=== PATIENT | male | born 1990 | race Caucasian/White ===

== ENCOUNTER → 2024-08-13 07:53 | Outpatient (REF) | payer OTHER, SELFPAY | LOC: EMG 07:53 | PROVIDERS: ATTENDING PHYSICIAN Physician Assistant Medical; FAMILY PHYSICIAN Family Medicine | DX: R20.2 Paresthesia of skin (principal); R20.0 Anesthesia of skin | CPT/HCPCS: 95886; 95911 ==

== ENCOUNTER 2024-08-25 18:10 | Inpatient (IN) | payer OTHER, SELFPAY ==
[2024-08-25] VITALS (7 sets, daily range): BP systolic 127–154; BP diastolic 88–96; BMI 25.9; BMI 25.2
--- NOTE | 2024-08-25 15:10 | ED.GENMED ---
History of Present Illness
General
Chief Complaint: Breathing Problem
Time Seen by Provider: 08/25/24 15:01
History of Present Illness
History of Present Illness:
Patient is a 34-year-old man presenting to the emergency department for respiratory distress. Patient states that for the past week he has had fevers chills cough congestion runny nose. He has had decreased p.o. secondary to it. Medics were
called today. On their arrival patient was 86% on room air placed on nasal cannula. He was tachycardic in the 140s. Blood sugar was normal. He does state this is similar to when he had COVID. He states that he has had pneumonia and required
chest tubes in the past before. Per chart review patient did have a prolonged admission for COVID in May 2022.
Past History
Past History
ED Past Medical History: Other (PNA, Thoracentesis, COVID Sleep disorder)
ED Past Surgical History: Tonsilectomy; Negative Cardiac
Social History
Tobacco: Smoker
Alcohol: None
Drug: Other (Substance abuse)
Personal: Single
Living: with family
Employment: Other
Family History
Family History: CAD
Phy Exam
Physical Exam
Physical Exam:
GENERAL: in no acute distress
HEENT: normocephalic, extraocular movements intact, dry oral mucosa
NECK: normal inspection
RESPIRATORY: Tachypneic, diminished breath sounds at bases, clear breath sound in the apical lung marte
CARDIOVASCULAR: Tachycardic rate regular rhythm
ABDOMEN/: soft, non-distended, non-tender to palpation, no rebound or guarding
EXTREMITIES: non-tender, no edema/swelling
NEUROLOGIC: awake and alert, moves all extremities
SKIN: warm
Sepsis
Sepsis Screening
Sepsis Assessment: Sepsis Ruled Out
Sepsis Screen
Sepsis Screen: Sepsis Ruled Out
Date: 08/25/24
Time: 16:50
Course
Orders/Labs/Results
Orders:
Orders
08/25/24 15:07
EKG [Electrocardiogram (*1)] Urgent
Reason for Study: Shortness of Breath
EKG- Treatment ONCE
CR Chest Portable - 1 View Urgent
Comment:
Reason For Exam: SOB
Reason Study Needs to be Portable: Patient Unstable
08/25/24 15:16
Basic Metabolic Panel Urgent
COVID-19 Antigen Urgent
Source: Nasal Swab
Complete Blood Count/No Diff Urgent
Influenza A+B Rapid Molecular Urgent
[place] Source: Nasal Swab
Specimen Description:
0.9% Sodium Chloride 1000 ml [Nss] 1,000 ml IV BOLUS
08/25/24 16:39
Doxycycline [Vibramycin] 100 mg PO NOW STA
08/25/24 16:48
CefTRIAXone [Rocephin] 1,000 mg IV NOW STA
Abnormal Lab Results
08/25/24
15:16
WBC 12.5 H 10^3/uL
(4.8-10.8)
MCH 31.2 H pg
(27.0-31.0)
MPV 11.1 H fL
(7.4-10.4)
Chloride 95 L mmol/L
(98-107)
Glucose 133 H mg/dl
(70-99)
08/25/24 15:16
08/25/24 15:16
Vital Signs
Initial and Last Documented VS:
Initial Vital Signs
Temp Pulse Resp BP Pulse Ox
97.9 F 132 22 127/95 88
08/25/24 15:08 08/25/24 15:08 08/25/24 15:08 08/25/24 15:08 08/25/24 15:08
Last Documented Vital Signs
Temp Pulse Resp BP Pulse Ox
97.9 F 139 19 127/95 93
08/25/24 15:08 08/25/24 16:30 08/25/24 16:30 08/25/24 15:08 08/25/24 16:30
MDM/Problems Addressed
Differential Diagnosis Includes:
Patient is a 34-year-old man presenting to the emergency department for over 1 week of fevers chills cough congestion runny nose. On arrival here patient is hypoxic to 89% on room air as well as tachycardic. On exam he does have diminished breath
sounds at the bases. Given the consolation of systems likely pneumonia versus viral infection. Considered PE though less likely given history and exam. Will obtain blood work EKG chest x-ray and give fluids.
*Critical Care Note
Total Time (30-74mins, 75-104mins- exclusive of procedures): Not Applicable
Update Note
Update Note:
EKG per my interpretation with prolonged QTc. Chest x-ray per my interpretation consistent with pneumonia. Will treat with ceftriaxone and doxycycline. I did discuss allergies with patient's mother. Patient's mother does state that he is
tolerated Augmentin in the past. I did consider giving alternative agent however given his prolonged QTc cannot give Levaquin. After shared decision making we will give ceftriaxone. Blood work otherwise reassuring. COVID flu negative. Discussed
with hospitalist who accepted patient to their service
ED Attending Note
-
Portions of this chart may have been created with voice recognition software.� Occasional wrong word or��sound alike� substitutions may have occurred due to the inherent limitations of voice recognition software.
Discharge Plan
Departure
Patient Disposition: Admit
Date of Disposition: 08/25/24
Time of Disposition: 16:39
Presentation/result/management discussed w/ accepting MD/DO: Hospitalist
Discharge Problem:
Pneumonia
Prescriptions:
No Action
buprenorphine-naloxone 8-2 mg Tablet, Sublingual
0.5 tab SUBLINGUAL 1500,2000
buprenorphine-naloxone 8-2 mg Tablet, Sublingual
1 tab SUBLINGUAL 2300
quetiapine 50 mg Tablet
50 mg PO HS
levofloxacin 500 mg tablet
500 mg PO DAILY 9 Days Qty: 9 0RF
metronidazole 500 mg tablet
500 mg PO TID Qty: 29 0RF
doxycycline hyclate 100 mg capsule
100 mg PO BID Qty: 14 0RF
Interventions
Interventions:
*Risk Screen - Suicide Last Done: 08/25/24 15:08
*General Assessment Last Done: 08/25/24 15:08
*Neglect/Abuse Screening Last Done: 08/25/24 15:08
*ED COVID-19 Vaccine History Last Done: 08/25/24 15:20
Discharge Date and Time
Print Language: SWISS
[2024-08-25 15:32] LABS: Hematocrit 48.2 % (39.0-52.0); Hemoglobin 16.7 g/dL (13.0-18.0); Mean Corp Hgb Conc. 34.6 g/dL (33.0-37.0); Mean Corpuscular Hgb 31.2 pg (27.0-31.0); Mean Corpuscular Volume 90.1 fL (80.0-94.0); Mean Platelet Volume 11.1 fL (7.4-10.4); Platelet Count 312 10^3/uL (130-400); Red Blood Cell Count 5.35 10^6/uL (4.70-6.10); Red Cell Dist. Width 12.3 % (11.5-14.5); White Blood Cell Count 12.5 10^3/uL (4.8-10.8)
[2024-08-25 15:46] LABS: Blood Urea Nitrogen 10 mg/dl (9-20); Calcium 9.6 mg/dl (8.4-10.2); Carbon Dioxide 22 mmol/L (22-30); Chloride 95 mmol/L (98-107); Estimated Creatinine Clearance > 125 ml/min; Glucose 133 mg/dl (70-99); Sodium 136 mmol/L (135-145); eGFR > 60.00
[2024-08-25 15:48] LABS: COVID-19 Antigen Negative (Negative)
--- NOTE | 2024-08-25 17:21 | HPS.HSE ---
Family Physician
-
Family Physician: Obdulio Rushing
Chief Complaint
-
Shortness of breath
History of Present Illness
34-year-old male with extensive past medical history of smoking cigarettes and vaping was presenting from home with shortness of breath. Per mom at bedside patient picked up upper respiratory congestion and cough during [place] time. Patient is
a for the past 9 days he has been having sore throat with productive cough. States the sputum is yellow in color intermittently. States of sore throat. Also stating of shortness of breath. Also with significantly poor appetite. Not drinking
enough water per mother at bedside. No chest pain. Denies any headache. Denies any nausea or vomiting. Had fevers at home. Currently states he is thirsty and wants to drink some water..
ER course -normal saline x 1 L, ceftriaxone and Doxy ordered, yet to be administered
Medical History
Past Medical History
Past Medical History: Reports Other
Additional Past Medical History:
Tobacco abuse
Vaping 5 mg daily
History of pleural effusion status post thoracentesis
History of COVID-19 infection
History of opioid abuse
Polyneuropathy
Primary insomnia
Hyperlipidemia
Chronic insomnia
Past Surgical History: Reports Tonsilectomy
Social History
Tobacco: Vaping
Alcohol: None
Drug: None
Family History
Family History: Not pertinent
Allergies / Home Medications
Allergies reflects when Allergies were last updated in [facility].
Home Medications with original date entered in [facility]
Allergy/Medication List:
Allergies
Allergy/AdvReac Type Severity Reaction Status Date / Time
amoxicillin trihydrate Allergy stomach Verified 08/25/24 15:15
[From Augmentin] upset and
diarrhea
azithromycin Allergy stomach Verified 08/25/24 15:15
[From Zithromax Z-[place]] upset and
diarrhea
peanut Allergy throat Verified 08/25/24 15:15
swells,
shortness
of breath,
rash
Penicillins Allergy Nausea / Verified 08/25/24 15:15
Vomiting
sesame oil Allergy Unknown Verified 08/25/24 15:15
sunflower oil Allergy throat Verified 08/25/24 15:15
swells,
shortness
of breath,
rash
Home Medications
buprenorphine 8 mg-naloxone 2 mg sublingual tablet 0.5 tab sublingual QID 10/05/22
quetiapine 50 mg tablet 50 mg PO DAILY 10/05/22
atorvastatin 10 mg tablet 10 mg PO DAILY 08/25/24
cholecalciferol (vitamin D3) 1,250 mcg (50,000 unit) capsule 1,250 mcg PO SA 08/25/24
Review of Systems
-
History Source: Patient and Family
Constitutional: Reports Fever and Fatigue
EENT: Reports Sore Throat
Respiratory: Reports Cough
Cardiac: Reports No Symptoms
Abdomen/GI: Reports Anorexia
: Reports No Symptoms
Musculoskeletal: Reports No Symptoms
Skin: Reports No Symptoms
Neurological: Reports No Symptoms
Endocrine: Reports No Symptoms
Hematologic/Lymphatic: Reports No Symptoms
Psych: Reports No Symptoms
Physical Exam
Vital Signs
Vital Signs
Temp Pulse Resp BP Pulse Ox
97.9 F 130 22 127/95 95
08/25/24 15:08 08/25/24 17:15 08/25/24 17:15 08/25/24 15:08 08/25/24 17:15
Physical Exam
General: Well Developed, Well Nourished, No Apparent Distress and Other (Warm to touch)
HEENT: NormoCephalic, Moist mucous membranes and Atraumatic
Respiratory: Clear and Decreased Breath Sounds
Cardiac: S1/S2, Regular Rhythm and Tachycardia; No Murmur or Rub
GI: Soft, Non Tender, Non Distended and Normal Bowel Sounds; No Organomegaly
Rectal: Deferred by Provider
Musculoskeletal: No Clubbing, No Cyanosis and No Edema
Skin: No Rash
Neuro: Awake, AO x 3, No Motor Deficits and Nonfocal/grossly intact
Psych: Calm
Laboratory Results
-
08/25/24 15:16
08/25/24 15:16
Laboratory Results
Total Bilirubin Cancelled 08/25/24 15:16
AST Cancelled 08/25/24 15:16
ALT Cancelled 08/25/24 15:16
Alkaline Phosphatase Cancelled 08/25/24 15:16
Impression/Plan
-
#Sepsis likely secondary to suspected pneumonia-poa
#Acute hypoxic respiratory insufficiency
Influenza & COVID-negative
Start patient on aggressive IV fluid resuscitation
Check a lactic acid
Check blood cultures
Start patient on ceftriaxone and doxycycline
Start patient on bronchodilators
Check CT chest study to rule out pulmonary embolism, pleural effusion, lung injury etc
Check strep pneumo and Legionella antigen
Check sputum culture
#Sinus tachycardia is multifactorial likely secondary sepsis, pneumonia, hypoxemia, nicotine withdrawal
Treat underlying symptomatology
Continue with IV fluid resuscitation and antibiotics
#Prolonged QTc secondary to likely sinus tachycardia
Recheck EKG in the morning
Monitor on telemetry
#Hyperlipidemia
Continue statin
#History of opioid abuse/tobacco/vaping
Continue with home dose of meds Subutex
certified alcohol drug counselor on cessation
#Chronic insomnia
Continue with Seroquel
Recheck Potassium as hemolysis on blood work-ordered
DVT prophylaxis Lovenox
Full code
Discussed with patient mother at bedside in detail
I spent a total of 79 minutes with the patient or on the floor. More than 50% of this time involved counseling and coordination of care.
[2024-08-25] MEDS: NSS 1000 IV ×2 (18:11→20:27)
[2024-08-25] MEDS: VIBRAMYCIN 100 MG PO (18:12)
[2024-08-25] MEDS: ROCEPHIN 1000 MG IV (18:12)
[2024-08-25 18:39] LABS: Lactic Acid 1.3 mmol/L (0.7-2.0)
[2024-08-25] MEDS: MUCINEX 600 MG PO (20:26)
[2024-08-25] MEDS: LOVENOX 40 MG SC (20:27)
[2024-08-25] MEDS: SUBUTEX 4 MG SL (22:13)
--- NOTE | 2024-08-25 22:44 | PTCARENOTE ---
Received pt from ED RN. Pt stood and pivot to the bed. Pt is AAOx3. Sinus tach on the monitor. Pt on 4L NC O2 sat 95%, lungs diminished. Cont x2, urinal @ bedside. NS infusing @ 150 ml/hr. Mom @ bedside. Call rios in reach. Safe environment
maintained.
[2024-08-26] MEDS: NSS 1000 IV ×2 (03:36→10:05)
[2024-08-26 03:53] VITALS: BP 130/76
[2024-08-26] MEDS: VIBRAMYCIN 260 MG IV ×2 (05:42→17:48)
[2024-08-26 07:12] LABS: % Basophils 0.4 % (0-2); % Eosinophils 0.1 % (0-6); % Immature Granulocytes 0.9 % (0-0.5); % Lymphocytes 15.5 % (20.5-51.1); % Monocytes 11.1 % (1.7-9.3); Absolute Basophils 0.1 10^3/uL (0-0.2); Absolute Immature Granulocytes 0.1 10^3/uL (0-0.05); Absolute Lymphocytes 2.2 10^3/uL (1.2-3.4); Absolute Monocytes 1.5 10^3/uL (0.1-0.6); Hematocrit 36.9 % (39.0-52.0); Hemoglobin 12.6 g/dL (13.0-18.0); Mean Corp Hgb Conc. 34.1 g/dL (33.0-37.0); Mean Corpuscular Volume 90.9 fL (80.0-94.0); Mean Platelet Volume 10.9 fL (7.4-10.4); Nucleated Red Blood Cells % 0 % (-); Platelet Count 223 10^3/uL (130-400); Red Blood Cell Count 4.06 10^6/uL (4.70-6.10); White Blood Cell Count 13.9 10^3/uL (4.8-10.8)
[2024-08-26 07:38] VITALS: BP 126/83
[2024-08-26 07:43] LABS: ALT (SGPT) 16 U/L (0-50); AST (SGOT) 22 U/L (17-59); Albumin 3.4 g/dl (3.5-5.0); Alkaline Phosphatase 96 U/L (38-126); Blood Urea Nitrogen 7 mg/dl (9-20); Calcium 8.6 mg/dl (8.4-10.2); Carbon Dioxide 28 mmol/L (22-30); Chloride 99 mmol/L (98-107); Estimated Creatinine Clearance > 125 ml/min; Glucose 116 mg/dl (70-99); Sodium 135 mmol/L (135-145); Total Bilirubin 0.9 mg/dl (0.2-1.3); Total Protein 6.3 g/dl (6.3-8.2); eGFR > 60.00
[2024-08-26 07:51] LABS: Potassium 3.9 mmol/L (3.5-5.1)
[2024-08-26] MEDS: SEROQUEL 50 MG PO (08:23)
[2024-08-26] MEDS: MUCINEX 600 MG PO ×2 (08:23→21:07)
[2024-08-26] MEDS: SUBUTEX 4 MG SL ×4 (08:23→21:07)
[2024-08-26] MEDS: LIPITOR 10 MG PO (08:24)
[2024-08-26 10:40] VITALS: BMI 25.2
[2024-08-26 11:16] VITALS: BP 124/72
--- NOTE | 2024-08-26 11:17 | W.PN.HOSP.TC ---
Today's Communication/Plan
-
Continue to wean down oxygen to room air
Continue with antibiotic
stop IVF
oob
Assessment / Plan
Assessment / Plan
#Sepsis likely secondary to suspected pneumonia-poa
#Acute hypoxic respiratory insufficiency
Influenza & COVID-negative
Start patient on aggressive IV fluid resuscitation
Lactic acid normal
Blood cultures in lab
Started patient on ceftriaxone and doxycycline
Start patient on bronchodilators
CT of the chest was noted. No evidence of pulmonary embolism. Some layering debris's in the trachea and left mainstem bronchus. Bilateral lower lobe consolidation with air bronchogram most likely infectious. Recommend follow-up imaging to
confirm complete resolution. Small volume subcarinal mediastinal lymph node. Overall less prominent comparison to prior studies.
Check strep pneumo and Legionella antigen found to be negative
Check sputum culture pending
#Sinus tachycardia is multifactorial likely secondary sepsis, pneumonia, hypoxemia, nicotine withdrawal
Treat underlying symptomatology
Significant improvement. Heart rate stable 80s on telemetry
DC further fluids.
#Prolonged QTc secondary to likely sinus tachycardia
Recheck EKG in the morning improvement in QTc to 445
Monitor on telemetry
#Hyperlipidemia
Continue statin
#History of opioid abuse/tobacco/vaping
Continue with home dose of meds Subutex
school counselor on cessation
#Chronic insomnia
Continue with Seroquel
DVT prophylaxis Lovenox
Full code
Discussed with patient mother at bedside in detail
Anticipated Discharge: Within 24 hours
Subjective/Interval History
-
Date of Service: August 26, 2024
states decrease in coughing episode
remains on oxygen
afebrile overnight
Objective Data
-
Labs:
Laboratory Results
08/26/24
06:41
WBC 13.9 H
Hgb 12.6 L D
Hct 36.9 L
Plt Count 223 D
Sodium 135
Potassium 3.9
Chloride 99
Carbon Dioxide 28
BUN 7 L
Creatinine 0.8
Glucose 116 H
Calcium 8.6
Total Bilirubin 0.9
AST 22
ALT 16
Alkaline Phosphatase 96
Vital Signs:
Vital Signs
Temp Pulse Resp BP Pulse Ox
97.9 F 84 18 124/72 94
08/26/24 11:16 08/26/24 11:16 08/26/24 11:16 08/26/24 11:16 08/26/24 11:16
I&O
08/25/24 08/26/24 08/27/24
06:59 06:59 06:59
Intake Total 2320 / 2320
Balance 2320 / 2320
Physical Exam
-
General: Well Developed, Well Nourished and No Apparent Distress
HEENT: Normocephalic, Atraumatic, Moist Mucous Membranes and Oxygen
Respiratory: Clear to Auscultation
Cardiac: Regular Rhythm and S1/S2; Negative Murmur, Rub or JVD
GI: Soft, Nontender, Nondistended and Normal Bowel Sounds
Musculoskeletal: No Clubbing, No Cyanosis and No Edema
Neuro: Awake, Alert, Oriented, AO x 3, No Motor Deficits and Nonfocal/Grossly Intact; Negative Tremors
Psych: Calm
Data Reviewed
-
Total Time Spent with Patient (in minutes): 55
--- NOTE | 2024-08-26 12:08 | CM ---
CM reviewed chart. Patient is here for sepsis, hypoxemia, tachycardia. Patient is currently lethargic. He was able to share with CM that he is independent, drives, not working at the moment. He and his mom lives in a 'stacked' home. There are 3 MEGH[place].
He has an active PCP and pharmacy. No DME. No +SDOHs.
CM consult placed for advanced directives. Patient seemed surprise by this. CM explained what the packet meant. It was placed at patient's bedside for him to review later, when he is more awake.
ANTICIPATED DISCHARGE PLAN: Discharge to home with mom, when medically cleared.
[2024-08-26 15:44] VITALS: BP 137/80
[2024-08-26] MEDS: DUONEB 3 ML INH (16:33)
[2024-08-26] MEDS: ROCEPHIN 1000 MG IV (17:47)
[2024-08-26] MEDS: STERILE WATER FOR INJECTION 10 ML IV (17:47)
[2024-08-26] MEDS: LOVENOX 40 MG SC (17:47)
[2024-08-26 20:00] VITALS: BP 148/94
[2024-08-26 23:33] VITALS: BP 121/81
[2024-08-27 03:24] VITALS: BP 126/78
[2024-08-27] MEDS: VIBRAMYCIN 260 MG IV (05:27)
[2024-08-27 07:11] LABS: % Basophils 0.5 % (0-2); % Eosinophils 0.9 % (0-6); % Monocytes 10.4 % (1.7-9.3); % Neutrophils 72.2 % (42.2-75.2); Absolute Basophils 0.1 10^3/uL (0-0.2); Absolute Eosinophils 0.1 10^3/uL (0-0.7); Absolute Immature Granulocytes 0.1 10^3/uL (0-0.05); Absolute Lymphocytes 1.4 10^3/uL (1.2-3.4); Absolute Neutrophils 6.9 10^3/uL (1.4-6.5); Hematocrit 35.7 % (39.0-52.0); Hemoglobin 12.9 g/dL (13.0-18.0); Mean Corp Hgb Conc. 36.1 g/dL (33.0-37.0); Mean Corpuscular Hgb 31.7 pg (27.0-31.0); Mean Corpuscular Volume 87.7 fL (80.0-94.0); Mean Platelet Volume 11.6 fL (7.4-10.4); Nucleated Red Blood Cells % 0 % (-); Platelet Count 200 10^3/uL (130-400); Red Blood Cell Count 4.07 10^6/uL (4.70-6.10); White Blood Cell Count 9.6 10^3/uL (4.8-10.8)
[2024-08-27 07:26] VITALS: BP 131/79
[2024-08-27] MEDS: MUCINEX 600 MG PO (08:39)
[2024-08-27] MEDS: SUBUTEX 4 MG SL ×2 (08:39→13:03)
[2024-08-27] MEDS: LIPITOR 10 MG PO (08:39)
[2024-08-27] MEDS: SEROQUEL 50 MG PO (08:39)
[2024-08-27 08:57] LABS: ALT (SGPT) 18 U/L (0-50); AST (SGOT) 25 U/L (17-59); Albumin 3.4 g/dl (3.5-5.0); Alkaline Phosphatase 103 U/L (38-126); Blood Urea Nitrogen 7 mg/dl (9-20); Carbon Dioxide 27 mmol/L (22-30); Chloride 100 mmol/L (98-107); Estimated Creatinine Clearance > 125 ml/min; Glucose 100 mg/dl (70-99); Potassium 3.8 mmol/L (3.5-5.1); Sodium 137 mmol/L (135-145); Total Bilirubin 0.7 mg/dl (0.2-1.3); Total Protein 6.4 g/dl (6.3-8.2); eGFR > 60.00
--- NOTE | 2024-08-27 11:25 | W.PN.HOSP.TC ---
Today's Communication/Plan
-
po abx on dc
repeat CXR in 4-6 weeks to assess for resolution
Assessment / Plan
Assessment / Plan
#Sepsis likely secondary to suspected pneumonia-poa
#Acute hypoxic respiratory insufficiency
Influenza & COVID-negative
IVF stopped.
Lactic acid normal
Blood cultures in lab and remains negative.
Started patient on ceftriaxone and doxycycline-po abx on dc
albuterol prn
CT of the chest was noted. No evidence of pulmonary embolism. Some layering debris's in the trachea and left mainstem bronchus. Bilateral lower lobe consolidation with air bronchogram most likely infectious. Recommend follow-up imaging to
confirm complete resolution. Small volume subcarinal mediastinal lymph node. Overall less prominent comparison to prior studies.
Check strep pneumo and Legionella antigen found to be negative
ant-tussive meds
Leukocytosis resolved.
#Sinus tachycardia is multifactorial likely secondary sepsis, pneumonia, hypoxemia, nicotine withdrawal
Treat underlying symptomatology
Significant improvement. Heart rate stable 80s on telemetry
DC further fluids.
Resolved
#Prolonged QTc secondary to likely sinus tachycardia
Recheck EKG in the morning improvement in QTc to 445
Monitor on telemetry
#Hyperlipidemia
Continue statin
#History of opioid abuse/tobacco/vaping
Continue with home dose of meds Subutex
dormitory counselor on cessation
#Chronic insomnia
Continue with Seroquel
DVT prophylaxis Lovenox
Full code
More than 30 minutes spent in discharge including
Final examination of the patient
Summarizing hospital stay
Instructions for continuing care to all relevant caregivers
Preparation of discharge records, prescriptions, and referral forms
Total time spent (in minutes): 55
Anticipated Discharge: Today
Subjective/Interval History
-
Date of Service: August 27, 2024
on room air
tolerating diet
having cough
HR in 80
remains afebrile
Objective Data
-
Labs:
Laboratory Results
08/27/24 08/27/24
06:41 08:04
WBC 9.6
Hgb 12.9 L
Hct 35.7 L
Plt Count 200
Sodium Cancelled 137
Potassium Cancelled 3.8
Chloride Cancelled 100
Carbon Dioxide Cancelled 27
BUN Cancelled 7 L
Creatinine Cancelled 0.6 L
Glucose Cancelled 100 H
Calcium Cancelled 9.0
Total Bilirubin Cancelled 0.7
AST Cancelled 25
ALT Cancelled 18
Alkaline Phosphatase Cancelled 103
Vital Signs:
Vital Signs
Temp Pulse Resp BP Pulse Ox
98.7 F 95 18 131/79 94
08/27/24 07:26 08/27/24 07:26 08/27/24 07:26 08/27/24 07:26 08/27/24 11:07
I&O
08/26/24 08/27/24 08/28/24
06:59 06:59 06:59
Intake Total 2320 / 2320 260 / 260
Balance 2320 / 2320 260 / 260
Physical Exam
-
General: Well Developed, Well Nourished and No Apparent Distress
HEENT: Normocephalic, Atraumatic, Moist Mucous Membranes and Oxygen
Respiratory: Clear to Auscultation
Cardiac: Regular Rhythm and S1/S2; Negative Murmur, Rub or JVD
GI: Soft, Nontender, Nondistended and Normal Bowel Sounds
Musculoskeletal: No Clubbing, No Cyanosis and No Edema
Neuro: Awake, Alert, Oriented, AO x 3, No Motor Deficits and Nonfocal/Grossly Intact; Negative Tremors
Psych: Calm
[2024-08-27 11:41] VITALS: BP 127/70
[2024-08-27] MEDS: ROCEPHIN 1000 MG IV (13:02)
--- NOTE | 2024-08-27 14:10 | W.DCSUMMARY ---
Discharge Summary
Discharge Data
Date of Admission: 08/25/24
Date of Discharge: 08/27/24
-
Pending Results: No
Hospital Course
34-year-old male past medical history of opiate abuse, tobacco, vaping abuse, chronic insomnia, who is presenting from home with weakness, productive cough. Patient upon admission was found to be negative for influenza and COVID. Patient was also
found to severely dehydrated and started on IV fluid resuscitation. Patient underwent a lactic acid evaluation which was found to be normal. Blood cultures were negative. Patient was started on antibiotics as with community-acquired pneumonia.
CT of the chest was performed CT of the chest was noted. No evidence of pulmonary embolism. Some layering debris's in the trachea and left mainstem bronchus. Bilateral lower lobe consolidation with air bronchogram most likely infectious.
Recommend follow-up imaging to confirm complete resolution. Small volume subcarinal mediastinal lymph node. Overall less prominent comparison to prior studies. Patient tachycardia resolved with IV fluid resuscitation. Patient had prolonged QTc
on admission which resolved. Patient was tolerating diet. Strep pneumo and Legionella antigen was negative. Blood cultures remain negative. Patient required oxygenation admission which was able to be weaned off. Patient was stable on room air.
Patient was tolerating diet and afebrile to be discharged home.
Discharge Plan
-
Patient Disposition: Home (Routine Discharge)
Discharge Diagnosis/Procedures: Sepsis likely secondary to suspected pneumonia
Acute hypoxic respiratory insufficiency
Sinus tachycardia
Condition: Fair
Diet: Regular
Activity: As tolerated
Driving Restrictions: As prior to admission
Others Tests: Repeat chest x-ray in 4 to 6 weeks with primary doctor to assess for resolution of pneumonia
Referrals:
Obdulio Rushing, DO [Family Provider] - in less than 1 week
Prescriptions:
New
cefpodoxime 200 mg tablet
200 mg PO Q12H Qty: 4 0RF
doxycycline hyclate 100 mg tablet
100 mg PO ONCE Qty: 6 0RF
Continued
buprenorphine-naloxone 8-2 mg Tablet, Sublingual
0.5 tab SUBLINGUAL QID
quetiapine 50 mg Tablet
50 mg PO DAILY
Patient Comments:
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
atorvastatin 10 mg Tablet
10 mg PO DAILY
cholecalciferol (vitamin D3) 1,250 mcg (50,000 unit) Capsule
1,250 mcg PO SA
Discharge Orders:
Discharge Patient (As Directed); Ordered 08/27/24
Ordered By: Leonard Arreguin
Discharge Date and Time
Print Language: GREENLANDIC
[2024-08-27] MEDS: VIBRAMYCIN 100 MG PO (14:30)
--- NOTE | 2024-08-27 14:51 | CM ---
CM reviewed medical records. Patient is medically ready for discharge to home. No needs noted.
PLAN: home, no needs .
== END 2024-08-27 14:45 | disposition home or self-care (01) | DRG 871 ==
LOC: 1 ACUTE 18:10
PROVIDERS: ADMITTING PHYSICIAN Hospitalist; EMERGENCY PHYSICIAN Student in an Organized Health Care Education/Training Program; FAMILY PHYSICIAN Family Medicine
DX: A41.89 Other specified sepsis (principal); J18.9 Pneumonia, unspecified organism; F17.203 Nicotine dependence unspecified, with withdrawal; Z11.52 Encounter for screening for COVID-19; E78.5 Hyperlipidemia, unspecified; R06.89 Other abnormalities of breathing; R09.02 Hypoxemia
CPT/HCPCS: 71045; 71275; 80048; 80053; 83605; 85025; 85027; 87040; 87070; 87205; 87449; 87502; 87811; 87899; 93005; 94640; 99285; Q9967

== ENCOUNTER → 2024-10-15 14:35 | Outpatient (REF) | payer OTHER, SELFPAY | LOC: RAD 14:35 | PROVIDERS: ATTENDING PHYSICIAN Physician Assistant Medical | DX: J18.9 Pneumonia, unspecified organism (principal) | CPT/HCPCS: 71046 ==

== ENCOUNTER → 2024-11-24 13:24 | Outpatient (REF) | payer OTHER, SELFPAY | LOC: RAD 13:24 | PROVIDERS: ATTENDING PHYSICIAN Internal Medicine Gastroenterology; FAMILY PHYSICIAN Family Medicine | DX: K76.89 Other specified diseases of liver (principal) | CPT/HCPCS: 76700 ==

== ENCOUNTER 2025-01-07 15:57 | Emergency (ER) | payer OTHER, SELFPAY ==
[2025-01-07 15:57] VITALS: BMI 26.3
[2025-01-07 15:59] VITALS: BP 132/91
--- NOTE | 2025-01-07 16:40 | ED.GENMED ---
History of Present Illness
General
Chief Complaint: Fatigue
Time Seen by Provider: 01/07/25 16:40
History of Present Illness
History of Present Illness:
TIME OF INITIAL ENCOUNTER: 4:45 PM
HPI: Patient presents with generalized weakness. This has been ongoing for the last week or 2. He has had similar episodes in the past. In the past, he had similar episode and was diagnosed with pneumonia but at that time he had low oxygen levels
and had shortness of breath. He does not have pneumonia symptoms currently. 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 He has had trouble eating and drinking and feels dehydrated.
EXAM:
GENERAL: The patient appears generally weak
HEENT: Slightly dry oral mucosa, lips pale
CARDIOVASCULAR: No murmurs, normal heart rate, regular rhythm, No chest wall tenderness
PULMONARY: No respiratory distress, breath sounds are clear and equal other than maybe some decreased breath sounds at the left base
ABDOMEN: Soft with no peritoneal signs, no tenderness
NEUROLOGIC: Excellent strength all extremities, no coordination deficits
PSYCHIATRIC: Appropriate mental status, normal insight and judgement
EXTREMITIES: Nontender, no edema, moves all extremities equally
SKIN: Paronychia noted at the right great toe but patient states is overall improving
NUMBER AND COMPLEXITY OF PROBLEMS ADDRESSED AT THE ENCOUNTER
� Chronic conditions affecting care: In 2012 had pneumonia and required thoracentesis at that time, smoker
� Acute Exacerbation and/or Progression of Chronic Illness: This is an acute problem
� Differential Diagnosis includes: Dehydration, SOFÍA, does not meet sepsis criteria on vital signs and white blood cell count, viral syndrome
AMOUNT AND/OR COMPLEXITY OF DATA TO BE REVIEWED AND ANALYZED
� I performed an independent evaluation of and my interpretation is:
EKG:
CT:
X-rays:
Laboratory Studies: White count normal, hemoglobin normal, chemistries unremarkable, total bili slightly high at 1.7, ketonuria noted, buprenorphine noted which patient is prescribed, he is positive for tricyclic's well, mono
and COVID-negative, flu - negative
Other:
� Review of other/old records: I reviewed old records, some slight elevation of total bili in the past
� Clinical information was obtained by an independent historian: I spoke to mother at bedside
� Prescriptions/Medications Considered but not given:
� Further testing considered but not performed:
RISK OF COMPLICATIONS AND/OR MORBIDITY OR MORTALITY OF PATIENT MANAGEMENT
� Social determinants of health affecting care: Lives at home
� Discussion with other providers:
� Escalation of care including admission/observation vs risk of discharge considered: No clear indication for admission to the hospital
ANY OTHER UPDATES:
Lab work is unremarkable. We talked about the Seroquel dosing from 50 mg to 25 mg daily as he has been sleeping a lot. He was given IV fluids as he does have ketonuria.
Past History
Past History
ED Past Medical History: Other (PNA, Thoracentesis, COVID Sleep disorder)
ED Past Surgical History: Tonsilectomy; Negative Cardiac
Social History
Tobacco: Smoker
Alcohol: None
Drug: Other (Substance abuse)
Personal: Single
Living: with family
Employment: Other
Family History
Family History: CAD
Phy Exam
Physical Exam
Physical Exam:
See HPI
Course
Orders/Labs/Results
Orders:
Orders
01/07/25 16:12
COVID-19 Antigen Urgent
Source: Nasal Swab
01/07/25 16:13
Influenza A+B Rapid Molecular Urgent
[facility] Source: Nasal Swab
Specimen Description:
01/07/25 16:15
Complete Blood Count/With Diff Urgent
01/07/25 16:40
Add On- LAB Urgent
Tests Added?: magnesium; TSH reflex to fT4
0.9% Sodium Chloride 1000 ml [Nss] 1,000 ml IV BOLUS
01/07/25 16:47
CR Chest - 2 Views Urgent
Comment:
Reason For Exam: weakness; prior pneumonia
01/07/25 16:52
Comprehensive Metabolic Panel Urgent
Drug Screen, Urine [Urine Drug Abuse Screen] Urgent
Date Specimen was Collected: 01/07/25
Time Specimen was Collected: 16:49
Fentanyl, Urine Urgent
Lipase Urgent
Magnesium Urgent
Monotest Urgent
TSH Reflex To Free T4 Urgent
Urinalysis Reflex To Culture Urgent
Date Specimen was Collected: 01/07/25
Time Specimen was Collected: 16:49
Abnormal Lab Results
01/07/25 01/07/25
16:15 16:52
MCH 31.5 H pg
(27.0-31.0)
MPV 11.0 H fL
(7.4-10.4)
Total Bilirubin 1.7 H mg/dl
(0.2-1.3)
Total Protein 8.5 H g/dl
(6.3-8.2)
Urine Ketones 3+ A
(Negative)
Ur Buprenorphine Positive H
(Negative)
Ur Tricyclics Screen Positive H
(Negative)
01/07/25 16:15
01/07/25 16:52
Vital Signs
Initial and Last Documented VS:
Initial Vital Signs
Temp Pulse Resp BP Pulse Ox
36.5 C 86 16 132/91 94
01/07/25 15:59 01/07/25 15:59 01/07/25 15:59 01/07/25 15:59 01/07/25 15:59
Last Documented Vital Signs
Temp Pulse Resp BP Pulse Ox
36.5 C 68 16 116/74 100
01/07/25 15:59 01/07/25 18:00 01/07/25 18:00 01/07/25 18:00 01/07/25 18:00
*Critical Care Note
Total Time (30-74mins, 75-104mins- exclusive of procedures): Not Applicable
ED Attending Note
-
Portions of this chart may have been created with voice recognition software.� Occasional wrong word or��sound alike� substitutions may have occurred due to the inherent limitations of voice recognition software.
Discharge Plan
Departure
Patient Disposition: Home (Routine Discharge)
Date of Disposition: 01/07/25
Time of Disposition: 18:12
Patient with high blood pressure during this ER visit?: Yes
Discharge Problem:
Weakness
Instructions: Fatigue (DC), BLOOD PRESSURE
Prescriptions:
No Action
buprenorphine-naloxone 8-2 mg Tablet, Sublingual
0.5 tab SUBLINGUAL QID
quetiapine 50 mg Tablet
50 mg PO DAILY
Patient Comments:
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
atorvastatin 10 mg Tablet
10 mg PO DAILY
cholecalciferol (vitamin D3) 1,250 mcg (50,000 unit) Capsule
1,250 mcg PO SA
cefpodoxime 200 mg tablet
200 mg PO Q12H Qty: 4 0RF
doxycycline hyclate 100 mg tablet
100 mg PO ONCE Qty: 6 0RF
Referrals:
Obdulio Rushing DO [Family Provider] -
Activity Restrictions/Additional Instructions:
White blood cell count, hemoglobin, chemistries were all normal except total bilirubin level was slightly high at 1.7 but the remainder of the LFTs and lipase were normal. Thyroid testing is normal. Urinalysis shows no sign of infection but does
show ketones which can commonly be seen with dehydration. We gave a liter of fluid. Consider decreasing the Seroquel dosing to 25 mg daily. Follow-up your primary care doctor.
Interventions
Interventions:
*Risk Screen - Suicide Last Done: 01/07/25 16:45
*General Assessment Last Done: 01/07/25 16:45
*Neglect/Abuse Screening Last Done: 01/07/25 16:45
*ED- Fall Risk Assessment Last Done: 01/07/25 16:45
Discharge Date and Time
Print Language: CROATIAN
[2025-01-07 16:44] LABS: COVID-19 Antigen Negative (Negative)
[2025-01-07 16:46] LABS: % Basophils 0.8 % (0-2); % Eosinophils 1.1 % (0-6); % Immature Granulocytes 0.3 % (0-0.5); % Lymphocytes 23.3 % (20.5-51.1); % Monocytes 9.2 % (1.7-9.3); % Neutrophils 65.3 % (42.2-75.2); Absolute Basophils 0.1 10^3/uL (0-0.2); Absolute Eosinophils 0.1 10^3/uL (0-0.7); Absolute Lymphocytes 1.5 10^3/uL (1.2-3.4); Absolute Monocytes 0.6 10^3/uL (0.1-0.6); Absolute Neutrophils 4.3 10^3/uL (1.4-6.5); Hematocrit 44.5 % (39.0-52.0); Hemoglobin 15.9 g/dL (13.0-18.0); Mean Corp Hgb Conc. 35.7 g/dL (33.0-37.0); Mean Corpuscular Hgb 31.5 pg (27.0-31.0); Mean Corpuscular Volume 88.1 fL (80.0-94.0); Nucleated Red Blood Cells % 0 % (-); Platelet Count 242 10^3/uL (130-400); Red Blood Cell Count 5.05 10^6/uL (4.70-6.10); Red Cell Dist. Width 12.5 % (11.5-14.5); White Blood Cell Count 6.5 10^3/uL (4.8-10.8)
[2025-01-07] MEDS: NSS 1000 IV (16:52)
[2025-01-07 16:56] VITALS: BP 123/88
[2025-01-07 17:00] VITALS: BP 133/81
[2025-01-07 17:22] LABS: Urine Albumin Negative (Neg - Trace); Urine Bilirubin Negative (Negative); Urine Character Clear (Clear); Urine Color Yellow; Urine Glucose Negative (Negative); Urine Ketone 3+ (Negative); Urine Leukocyte Negative (Negative); Urine Nitrite Negative (Negative); Urine Occult Blood Negative (Negative); Urine Urobilinogen Negative (Neg - 1+)
[2025-01-07 17:30] VITALS: BP 113/81
[2025-01-07 17:30] LABS: Amphetamines Negative (Negative); Barbiturates Negative (Negative); Benzodiazepines Negative (Negative); Buprenorphine Positive (Negative); Cocaine Negative (Negative); Marijuana Negative (Negative); Methadone Negative (Negative); Methamphetamines Negative (Negative); Opiates Negative (Negative); Phencyclidine Negative (Negative); Tricyclic Antidepressants Positive (Negative)
[2025-01-07 17:32] LABS: ALT (SGPT) 21 U/L (0-50); AST (SGOT) 26 U/L (17-59); Albumin 4.6 g/dl (3.5-5.0); Alkaline Phosphatase 95 U/L (38-126); Blood Urea Nitrogen 13 mg/dl (9-20); Calcium 9.7 mg/dl (8.4-10.2); Carbon Dioxide 23 mmol/L (22-30); Chloride 103 mmol/L (98-107); Estimated Creatinine Clearance > 125 ml/min; Glucose 99 mg/dl (70-99); Lipase 71 U/L (23-300); Magnesium 1.8 mg/dl (1.6-2.3); Potassium 4.1 mmol/L (3.5-5.1); Sodium 137 mmol/L (135-145); Total Bilirubin 1.7 mg/dl (0.2-1.3); Total Protein 8.5 g/dl (6.3-8.2); eGFR > 60.00
[2025-01-07 17:40] LABS: Monotest Negative (Negative)
[2025-01-07 17:50] LABS: Fentanyl, Urine Negative (Negative)
[2025-01-07 18:00] VITALS: BP 116/74
[2025-01-07 18:03] LABS: TSH Reflex To Free T4 2.53 uIU/ml (0.47-4.68)
== END 2025-01-07 19:31 | disposition home or self-care (01) ==
LOC: EMR 15:57
PROVIDERS: Emergency Medicine; EMERGENCY PHYSICIAN Emergency Medicine; FAMILY PHYSICIAN Family Medicine
DX: R53.1 Weakness (principal); R53.83 Other fatigue; L03.031 Cellulitis of right toe; R82.4 Acetonuria; Z11.52 Encounter for screening for COVID-19; R03.0 Elevated blood-pressure reading, without diagnosis of hypertension; G47.9 Sleep disorder, unspecified; F19.11 Other psychoactive substance abuse, in remission; Z86.16 Personal history of COVID-19; Z87.01 Personal history of pneumonia (recurrent); Z88.1 Allergy status to other antibiotic agents; Z91.010 Allergy to peanuts; Z88.0 Allergy status to penicillin; Z91.018 Allergy to other foods
CPT/HCPCS: 99284; 96360; 71046; 80053; 80306; 80307; 81003; 83690; 83735; 84443; 85025; 86308; 87502; 87811